=== PATIENT | female | born 1990 | race African-American/Black ===

== ENCOUNTER 2019-06-24 18:10 | Inpatient (IN) ==
[2019-06-24] MEDS ORDERED: ONDANSETRON 4 MG/2 ML VIAL IV PRN (19:19)
[2019-06-24] MEDS ORDERED: BUTORPHANOL 2 MG/ML VIAL IV PRN (19:19)
[2019-06-24] MEDS ORDERED: LABETALOL 100 MG/20 ML VIAL IV PRN ×3 (19:21)
[2019-06-24] MEDS: LACTATED RINGERS 1,000 ML IV SCH ×2 (19:43→20:31)
[2019-06-24 19:48] LABS: Basophils % 0.2 % (0.0-0.8); Eosinophils % 0.1 % (0.00-10.9); Hematocrit 37.3 VOL% (35.7-47.0); Hemoglobin 13.3 GM/DL (12.0-16.0); Immature Granulocytes % 0.6 %; Immature Granulocytes Absolute 0.12 #; Lymphocytes # 3.4 10*3/uL (1.4-4.0); Lymphocytes % 17.5 % (21.3-54.2); Mean Corpuscular HGB Conc 35.7 GM/DL (32-36); Mean Corpuscular Volume 74.7 FL (87-102); Mean Platelet Volume 12.1 FL (9.6-12.0); Monocytes % 4.3 % (1.7-12.7); Neutrophils % 77.3 % (38.7-73.9); Platelet Count 190 T/CUMM (130-400); Red Blood Count 4.99 MC/CUMM (3.8-5.5); Red Cell Distribution Width 16.2 % (9.3-17.3); White Blood Count 19.5 T/CUMM (4-12)
[2019-06-24 20:00] LABS: Apearance,Urine CLEAR (Clear); Bacteria,Urine Occasional /HPF (Few); Bilirubin,Urine Negative (Negative); Blood, Urine Negative (Negative); Glucose,Urine (UA) Negative (Negative); Ketones,Urine 20 mg/dL (Negative); Nitrite,Urine Negative (Negative); Protein,Urine Negative; Squamous Epithelial Cell,Urine Occasional /HPF (0-10); Urine Color Yellow (Yellow); Urine Specific Gravity 1.006 (1.001-1.035); Urine Urobilinogen < 2.0 EU/DL (0.2-1.0); WBC,Urine 1 /HPF (0-6)
[2019-06-24] MEDS ORDERED: AMPICILLIN INJ 2,000 MG in SODIUM CHLORIDE 0.9% 100 ML IV SCH (20:00)
[2019-06-24 20:10] LABS: Albumin 2.7 G/DL (3.4-5.0); Bilirubin,Direct 0.19 MG/DL (0.0-0.20); Calcium 9.7 MG/DL (8.5-10.1); Osmolality,Calculated 270.7 MOS/KG (273-304); Total Protein 7.4 G/DL (6.4-8.3); Uric Acid 4.3 MG/DL (2.6-6.0)
[2019-06-24 20:11] LABS: INR 0.9; PT Patient Result 9.8 SECS (9.6-12.2); Partial Thromboplastin Time 26.8 SECS (20.8-36.0)
[2019-06-24] MEDS ORDERED: diphenhydrAMINE 50 MG/1 ML VIAL IV PRN (20:50)
[2019-06-24] MEDS ORDERED: FAMOTIDINE 20 MG/2 ML VIAL IV ONE (20:50)
[2019-06-24] MEDS ORDERED: ePHEDrine 50 MG/ML AMP IV PRN ×2 (20:50)
[2019-06-24] MEDS ORDERED: LACTATED RINGERS 1,000 ML IV ONE (20:50)
[2019-06-24] MEDS ORDERED: CITRIC ACID/SODIUM CITRATE 30 ML UDCUP PO ONE (20:50)
[2019-06-24] MEDS ORDERED: ONDANSETRON 4 MG/2 ML VIAL IV ONE (20:50)
[2019-06-24] MEDS ORDERED: fentaNYL 2 MCG/ROPIV 0.2% EPID 100 ML EPIDURAL SCH (21:00)
[2019-06-24] MEDS ORDERED: LACTATED RINGERS 1,000 ML IV SCH (21:00)
[2019-06-24] MEDS ORDERED: NALOXONE 0.4 MG/ML VIAL IV PRN (21:02)
[2019-06-24 22:54] LABS: Apearance,Urine CLEAR (Clear); Bilirubin,Urine Negative (Negative); Blood, Urine Negative (Negative); Calcium Oxalate Crystals,Urine Occasional /HPF (Few); Glucose,Urine (UA) Negative (Negative); Ketones,Urine 80 mg/dL (Negative); Mucus,Urine Few /LPF (Occasional); Nitrite,Urine Negative (Negative); Protein,Urine Negative; RBC,Urine 2 /HPF (0-4); Squamous Epithelial Cell,Urine Occasional /HPF (0-10); Urine Color Yellow (Yellow); Urine Specific Gravity 1.017 (1.001-1.035); Urine Urobilinogen < 2.0 EU/DL (0.2-1.0); WBC,Urine <1 /HPF (0-6)
[2019-06-25] MEDS ORDERED: OXYTOCIN/LR 20 UNIT/1,000 ML BAG IV ONE ×2 (00:48→01:30)
[2019-06-25] MEDS ORDERED: TRANEXAMIC ACID 1,000 MG/10 ML VIAL ONE (00:48)
[2019-06-25] MEDS ORDERED: miSOPROStol 200 MCG TABLET ONE (00:48)
[2019-06-25] MEDS ORDERED: METHYLERGONOVINE 0.2 MG/1 ML AMP ONE (00:49)
[2019-06-25] MEDS ORDERED: CARBOPROST TROMETHAMINE 250 MCG/ML AMP IM ONE (00:49)
[2019-06-25] MEDS ORDERED: SODIUM CHLORIDE 0.9% 0 ML IV ONE (00:50)
[2019-06-25] MEDS ORDERED: BENZOCAINE 20%/MENTHOL 0.5% SPRAY 56 GM CAN TOP PRN (01:30)
[2019-06-25] MEDS ORDERED: DIPH/TET/ACEL PERT BOOSTER VACCINE 0.5 ML VIAL IM ONE (01:30)
[2019-06-25] MEDS ORDERED: WITCH HAZEL PADS 100/JAR TOP PRN (01:30)
[2019-06-25] MEDS ORDERED: RHO(D) IMMUNE GLOBULIN 300 MCG SYRINGE IM ONE (01:30)
[2019-06-25] MEDS ORDERED: ONDANSETRON 4 MG/2 ML VIAL IV PRN (01:30)
[2019-06-25] MEDS ORDERED: BISACODYL 10 MG SUPP RECTAL PRN (01:30)
[2019-06-25] MEDS ORDERED: MEASLES/MUMPS/RUBELLA VACCINE 0.5 ML VIAL SUBCUT ONE (01:30)
[2019-06-25] MEDS ORDERED: HYDROCORTISONE 2.5% RECTAL CREAM 30 GM TUBE TOP PRN (01:30)
[2019-06-25] MEDS ORDERED: LANOLIN 50% CREAM 0.3 OZ TUBE TOP PRN (01:30)
[2019-06-25] MEDS ORDERED: ACETAMINOPHEN 325 MG TABLET PO PRN (01:30)
[2019-06-25] MEDS ORDERED: oxyCODONE/ACETAMINOPHEN 5-325 MG TABLET PO PRN ×2 (01:30)
[2019-06-25 02:49] LABS: Basophils # 0.1 10*3/uL (0.0-0.2); Basophils % 0.3 % (0.0-0.8); Hematocrit 37.2 VOL% (35.7-47.0); Hemoglobin 12.7 GM/DL (12.0-16.0); Immature Granulocytes % 0.9 %; Immature Granulocytes Absolute 0.25 #; Lymphocytes # 1.2 10*3/uL (1.4-4.0); Lymphocytes % 4.4 % (21.3-54.2); Mean Corpuscular HGB Conc 34.1 GM/DL (32-36); Mean Corpuscular Volume 76.1 FL (87-102); Mean Platelet Volume 12.3 FL (9.6-12.0); Monocytes % 3.6 % (1.7-12.7); Neutrophils % 90.8 % (38.7-73.9); Platelet Count 192 T/CUMM (130-400); Red Blood Count 4.89 MC/CUMM (3.8-5.5); Red Cell Distribution Width 15.9 % (9.3-17.3)
[2019-06-25 03:50] LABS: Lymphocytes 2 % (20-55); Segmented Neutrophils 97 % (50-85); Total Cells Counted 100
[2019-06-25 03:52] LABS: Stomatocytes Slight; Target Cells Slight
[2019-06-25 03:53] LABS: Anisocytosis Slight; Hypochromasia Slight; Microcytosis 1+; Polychromasia Slight
[2019-06-25 03:54] LABS: Platelet Estimate Normal
[2019-06-25] MEDS: IBUPROFEN 800 MG TABLET PO PRN ×2 (08:09→19:39)
[2019-06-25] MEDS: DOCUSATE SODIUM 100 MG CAPSULE PO SCH ×2 (09:40→20:47)
[2019-06-26] MEDS: DOCUSATE SODIUM 100 MG CAPSULE PO SCH (08:39)
[2019-06-26 11:15] VITALS: BP 142/84
== END 2019-06-26 15:40 | disposition home or self-care (01) | DRG 807 ==
LOC: N.LDOUT 18:10 → N.LD 18:14 → N.LDOUT 18:20 → N.LD 18:43 → N.OB 06-25 04:09
PROVIDERS: ADMIT Obstetrics & Gynecology; ATTEND Obstetrics & Gynecology

== ENCOUNTER 2020-06-06 00:54 | Inpatient (IN) ==
[2020-06-06] MEDS ORDERED: OXYTOCIN/LR 20 UNIT/1,000 ML BAG IV ONE (01:00)
[2020-06-06] MEDS ORDERED: LACTATED RINGERS 1,000 ML IV PRN (01:19)
[2020-06-06] MEDS ORDERED: ONDANSETRON 4 MG/2 ML VIAL IV PRN (01:19)
[2020-06-06] MEDS ORDERED: BISACODYL 10 MG SUPP RECTAL PRN (01:34)
[2020-06-06] MEDS ORDERED: BENZOCAINE 20%/MENTHOL 0.5% SPRAY 56 GM CAN TOP PRN (01:34)
[2020-06-06] MEDS ORDERED: LANOLIN 50% CREAM 0.3 OZ TUBE TOP PRN (01:34)
[2020-06-06] MEDS ORDERED: MEASLES/MUMPS/RUBELLA VACCINE 0.5 ML VIAL SUBCUT ONE (01:34)
[2020-06-06] MEDS ORDERED: RHO(D) IMMUNE GLOBULIN 300 MCG SYRINGE IM ONE (01:34)
[2020-06-06] MEDS ORDERED: WITCH HAZEL PADS 100/JAR TOP PRN (01:34)
[2020-06-06] MEDS ORDERED: HYDROCORTISONE 2.5% RECTAL CREAM 30 GM TUBE TOP PRN (01:34)
[2020-06-06] MEDS ORDERED: DIPH/TET/ACEL PERT BOOSTER VACCINE 0.5 ML VIAL IM ONE (01:34)
[2020-06-06] MEDS ORDERED: oxyCODONE/ACETAMINOPHEN 5-325 MG TABLET PO PRN (01:34)
[2020-06-06] MEDS ORDERED: ACETAMINOPHEN 325 MG TABLET PO PRN (01:34)
[2020-06-06 01:43] LABS: Basophils % 0.2 % (0.0-0.8); Hematocrit 39.5 VOL% (35.7-47.0); Hemoglobin 13.9 GM/DL (12.0-16.0); Immature Granulocytes % 0.8 %; Immature Granulocytes Absolute 0.19 #; Lymphocytes # 1.4 10*3/uL (1.4-4.0); Mean Corpuscular HGB Conc 35.2 GM/DL (32-36); Mean Corpuscular Volume 76.1 FL (87-102); Mean Platelet Volume 10.9 FL (9.6-12.0); Monocytes % 3.4 % (1.7-12.7); Neutrophils % 89.6 % (38.7-73.9); Platelet Count 316 T/CUMM (130-400); Red Blood Count 5.19 MC/CUMM (3.8-5.5); White Blood Count 22.5 T/CUMM (4-12)
[2020-06-06] MEDS: IBUPROFEN 800 MG TABLET PO PRN ×3 (01:43→21:31)
[2020-06-06 02:09] LABS: Albumin 2.6 G/DL (3.4-5.0); Osmolality,Calculated 270.8 MOS/KG (273-304); Total Protein 7.1 G/DL (6.4-8.3)
[2020-06-06 02:48] LABS: Band Neutrophils 1 % (0-10); Lymphocytes 8 % (20-55); Segmented Neutrophils 89 % (50-85); Total Cells Counted 100
[2020-06-06 02:49] LABS: Microcytosis 1+; Platelet Estimate Normal
[2020-06-06 06:55] LABS: Basophils % 0.1 % (0.0-0.8); Hemoglobin 12.7 GM/DL (12.0-16.0); Immature Granulocytes % 0.6 %; Immature Granulocytes Absolute 0.13 #; Lymphocytes # 2.1 10*3/uL (1.4-4.0); Mean Corpuscular HGB Conc 34.3 GM/DL (32-36); Mean Corpuscular Volume 76.6 FL (87-102); Mean Platelet Volume 10.8 FL (9.6-12.0); Neutrophils % 84.3 % (38.7-73.9); Platelet Count 315 T/CUMM (130-400); Red Blood Count 4.83 MC/CUMM (3.8-5.5); White Blood Count 21.2 T/CUMM (4-12)
[2020-06-06 07:45] LABS: Eosinophils 1 % (0-10); Hypochromasia 1+; Lymphocytes 16 % (20-55); Microcytosis 1+; Platelet Estimate Adequate; Segmented Neutrophils 80 % (50-85); Total Cells Counted 100
[2020-06-06] MEDS: DOCUSATE SODIUM 100 MG CAPSULE PO SCH ×3 (08:37→21:34)
[2020-06-06] MEDS: oxyCODONE/ACETAMINOPHEN 5-325 MG TABLET PO PRN ×2 (16:03→21:33)
[2020-06-07 05:18] LABS: Basophils % 0.2 % (0.0-0.8); Eosinophils # 0.1 10*3/uL (0.0-0.87); Eosinophils % 0.4 % (0.00-10.9); Hematocrit 35.2 VOL% (35.7-47.0); Hemoglobin 12.4 GM/DL (12.0-16.0); Immature Granulocytes % 0.5 %; Immature Granulocytes Absolute 0.07 #; Lymphocytes # 3.6 10*3/uL (1.4-4.0); Lymphocytes % 26.9 % (21.3-54.2); Mean Corpuscular HGB Conc 35.2 GM/DL (32-36); Mean Corpuscular Volume 75.7 FL (87-102); Monocytes % 6.2 % (1.7-12.7); Neutrophils % 65.8 % (38.7-73.9); Platelet Count 306 T/CUMM (130-400); Red Blood Count 4.65 MC/CUMM (3.8-5.5); Red Cell Distribution Width 15.2 % (9.3-17.3); White Blood Count 13.5 T/CUMM (4-12)
[2020-06-07 08:47] VITALS: BP 123/86
[2020-06-07] MEDS: DOCUSATE SODIUM 100 MG CAPSULE PO SCH (09:14)
[2020-06-07 11:58] LABS: Hepatitis B Surface Ag Quant < 0.10 Index; Hepatitis B Surface Ag Result Negative (Negative)
[2020-06-07 12:27] LABS: HIV Antigen/Antibody Result Nonreactive (Nonreactive)
== END 2020-06-07 14:30 | disposition home or self-care (01) | DRG 776 ==
LOC: N.LD 00:54 → N.OB 07:00
PROVIDERS: ADMIT Specialist; ATTEND Nurse Practitioner Women's Health